=== PATIENT | male | born 1940 | race Caucasian/White ===

== ENCOUNTER 2019-03-17 13:39 | Outpatient (CLI) | payer MEDICARE ==
--- NOTE | 2019-03-17 15:49 | RAD ---
Exam: 4 views lumbar spine HISTORY: Lumbar radiculopathy. Pain. FINDINGS: Weightbearing AP, lateral neutral, lateral flexion and lateral extension views demonstrate 5 lumbar type vertebral bodies. There is dextrorotatory scoliosis. In the neutral position, no significant spondylolisthesis. No abnormal motion upon flexion or extension. There is multilevel dege nerative disc disease with loss of disc space height and osteophyte formation. IMPRESSION: Dextrorotoscoliosis. Transcribed Date/Time: 03/17/2019 4:01 PM
--- NOTE | 2019-03-17 15:58 | MRI ---
MRI LUMBAR SPINE NONCONTRAST: HISTORY: Low back pain. COMPARISON: None. FINDINGS: Heterogeneous marrow signal intensity of the lumbar vertebrae, likely due to senescent change. No sig nificant STIR hyperintensity to suggest vertebral body edema or ligamentous injury. There is rightward curvature of the lumbar spine. No significant spondylolisthesis. Symmetric signal intensity of the paraspinal muscles. Large T2 hyperintensity emanating from the left renal cortex, incompletely evaluation. Renal cortical cyst is favored. Additional similar intensity lesion is noted in the upper pole the right kidney as well as the mid to upper pole the left. Conus medullaris terminates at the L1-L2 level. T12-L1:No significant central canal stenosis. Moderate bilateral neural foraminal narrowing L1-L2:Mild loss of disc space height. Broad-based disc bulge, ligament flavum thickening and facet hy pertrophy result in mild canal stenosis. Narrowing of the left subarticular zone with partial obscuration the traversing left L2 nerve root. Overall, there is mild central canal stenosis. Moderat e right and moderate to severe left neural foraminal narrowing. L2-L3:Severe loss of disc space height. Broad-based disc bulge, ligament flavum thickening and facet result in moderate central canal stenosis. Mild right and moderate to severe left neural foraminal narrowing. L3-L4:Moderate to severe loss of disc space height. Broad-based disc bulge, ligament flavum thickenin g and facet hypertrophy result in moderate to severe central canal stenosis. Fluid in both facet joints. Moderate to severe right and left neural foraminal narrowing. L4-L5:Desiccation with severe loss of disc space height. Broad-based disc bulge, ligament flavum thic kening and facet hypertrophy result in moderate to severe central canal stenosis. Moderate severe right and moderate left neural foraminal narrowing. L5-S1:Desiccation with severe loss of disc space height. Broad-based disc bulge, ligament flavum thic kening and facet hypertrophy result in moderate canal stenosis. Severe right and moderate to severe left neural foraminal narrowing IMPRESSION: 1. Dextrorotoscoliosis of the lumbar spine. 2. Multilevel significant central canal stenosis and neural foraminal narrowing as described above. 3. Incompletely evaluated bilateral renal cortical cysts. Reference made to renal ultrasound from does document a large left renal cyst. Transcribed Date/Time: 03/17/2019 4:03 PM
== END 2019-03-17 13:40 | disposition home or self-care (01) ==
LOC: BICMRI 13:39
PROVIDERS: ATTEND Surgery
DX: M54.16 Radiculopathy, lumbar region (principal); M41.9 Scoliosis, unspecified; M48.061 Spinal stenosis, lumbar region without neurogenic claudication; N28.1 Cyst of kidney, acquired
CPT/HCPCS: 72110; 72148

== ENCOUNTER 2019-04-14 09:47 | Outpatient (CLI) | payer MEDICARE ==
--- NOTE | 2019-04-14 12:02 | MRI ---
MRI Cervical spine without contrast: HISTORY: Neck Pain COMPARISON: None FINDINGS: The craniocervical junction is unremarkable. No significant cord signal abnormality. Paravertebral soft tissues have a normal appearance and normal signal intensity. There is a tubular area of signal hyperintensity along the neurovascular bundle on the right likely r elated to a small varix. A rounded focus of increased T1 and T2-weighted signal intensity is seen in the T2 vertebral body lik feliz related to small hemangioma. C1-2:Mild degenerative changes are seen at the articulation of the odontoid with the anterior arch of C1. C2-3: There is a mild disc osteophyte complex at this level with facet hypertrophic changes. The righ t neural foramen is patent, but there is mild left-sided neural foraminal narrowing. Central spinal canal is patent. C3-4: There is a mild broad-based disc osteophyte complex. Facet hypertrophic changes are noted. Ther e is mild right and moderate to severe left-sided neural foraminal narrowing. There is effacement of the ventral subarachnoid space with slight flattening of the anterior aspect of the spinal cord. C4-5: There is a broad-based disc osteophyte complex and facet hypertrophic changes. Small central di sc protrusion is also present. There is mild to moderate narrowing of the central spinal canal. Mild right and moderate to severe left-sided neural foraminal narrowing are present. C5-6: There is loss of intervertebral disc height with mild endplate degenerative changes. A broad-ba sed disc osteophyte complex is present. Facet hypertrophic changes are noted. Moderate bilateral neural foraminal narrowing is present. There is mild generalized narrowing of the central spinal claire l with slight flattening of the anterior aspect of the spinal cord. C6-7: There is loss of intervertebral disc height. Broad-based disc osteophyte complex is present wit h mild facet degenerative changes. There is narrowing of the ventral subarachnoid space with slight flattening of the anterior aspect of the spinal cord. Mild bilateral neural foraminal narrowing is pr esent. C7-T1: No significant disc bulge or disc herniation. The central spinal canal and neural foramina are patent IMPRESSION: Multilevel degenerative changes in the cervical spine with moderate and moderate to severe degrees of neural foraminal narrowing as described above.
== END 2019-04-14 09:48 | disposition home or self-care (01) ==
LOC: BICMRI 09:47
PROVIDERS: ATTEND Surgery
DX: M54.2 Cervicalgia (principal); M48.02 Spinal stenosis, cervical region; M47.812 Spondylosis without myelopathy or radiculopathy, cervical region
CPT/HCPCS: 72141

== ENCOUNTER 2019-05-24 13:55 | Outpatient (CLI) | payer MEDICARE ==
--- NOTE | 2019-05-24 14:18 | RAD ---
CERVICAL SPINE: 4 views. Lateral views taken with flexion and extension. INDICATIONS:Cervical pain COMPARISON:None FINDINGS: Moderate degenerative changes. Loss of disc space at C5-6 and C6-7. Prominent anterior osteophytes an d posterior spondylosis. Mild anterolisthesis at C3-4, C4-5, and at C5-6. The C3-4 listhesis appears to exacerbate with flexio n. Facet hypertrophy. No evidence of fracture. No soft tissue abnormality identified. IMPRESSION: Degenerative changes of cervical spine as described.
== END 2019-05-24 13:56 | disposition home or self-care (01) ==
LOC: BICRAD 13:55
PROVIDERS: ATTEND Surgery
DX: M54.2 Cervicalgia (principal); M47.812 Spondylosis without myelopathy or radiculopathy, cervical region
CPT/HCPCS: 72050